=== PATIENT | female | born 1980 | race Caucasian/White ===

== ENCOUNTER → 2017-09-17 | Outpatient (CLI) | payer BC ==
--- NOTE | 2017-09-17 16:11 | US ---
EXAMINATION TYPE: US thyroid st tissue head/neck DATE OF EXAM: 09/17/2017 COMPARISON: 06/07/2014 CLINICAL HISTORY: 36-year-old female Hx Thyroid Ca Z85.850. Palpable area reported along the anterior right paramedian neck. TECHNIQUE: Multiple sonographic images along the thyroid bed a anterior right paramedian palpable sit e. Findings: The thyroidectomy bed is clear. At the site of palpable abnormality anterior right paramedian region, there is a circumscribed, oval isoechoic lesion measuring 2.5 x 0.8 x 2.1 cm. Some images suggest and uneven skin appearance. No int ernal vascularity. The marketing analytics specialist reports that this is soft. It overlies the strap musculature and i s located medial to the sternocleidomastoid. IMPRESSION: 1. Soft, circumscribed, 2.5 cm mass centered in the subcutaneous fat at the palpable site, anterior r ight paramedian neck. A lipoma is suspected. Careful clinical correlation is recommended as there has been reported growth. If there really has been growth, surgical excision can be considered. A contra st-enhanced CT of the neck may be of benefit. 2. The thyroidectomy bed appears clear.
== END ==
LOC: RADUSWWP 15:41
PROVIDERS: ATTEND Family Medicine
DX: Z08 Encounter for follow-up examination after completed treatment for malignant neoplasm (principal); Z85.850 Personal history of malignant neoplasm of thyroid
CPT/HCPCS: 76536

== ENCOUNTER → 2017-09-19 | Outpatient (CLI) | payer BC ==
--- NOTE | 2017-09-19 14:17 | CT ---
EXAMINATION TYPE: CT chest w con DATE OF EXAM: 09/19/2017 COMPARISON: CT neck from yesterday. HISTORY: Patient has no complaints at time of study. Follow up study for abnormal neck ct yesterday. CT DLP: 312.3 mGycm. Automated Exposure Control for Dose Reduction was Utilized. TECHNIQUE: CT scan of the thorax is performed following with IV Contrast, patient injected with 100 mL of Omnipaque 300. FINDINGS: LUNGS: The lungs are grossly clear, there is no concerning parenchymal mass or nodule identified. T here is no pleural effusion or pneumothorax seen. The tracheobronchial tree is patent. MEDIASTINUM: There are no greater than 1 cm hilar or mediastinal lymph nodes. No cardiomegaly or pe ricardial effusion is seen. Curvilinear soft tissue density anterior superior mediastinum is consist ent with normal-appearing thymus tissue presumed from thymic rebound. OTHER: Cholecystectomy clips are present. Splenule is noted inferior to splenic hilum. IMPRESSION: Normal-appearing thymus tissue anterior superior mediastinum atypical for patient's age f avor thymic rebound or thymic hyperplasia. Clinical correlation advised to help determine cause as di fferential includes response to systemic stress, SLE, RA, scleroderma, and Graves' disease among the possible etiologies.
== END | disposition home or self-care (01) ==
LOC: RADCTMAIN 13:28
PROVIDERS: ATTEND Surgery
DX: R22.2 Localized swelling, mass and lump, trunk (principal)
CPT/HCPCS: 71260; Q9967

== ENCOUNTER 2017-10-07 08:47 | Day surgery (SDC) | payer BC ==
[2017-10-07 09:18] VITALS: BP 145/73; PULSE 77; RESP 16; TEMP 97.2
--- NOTE | 2017-10-07 10:58 | US ---
ULTRASOUND GUIDED FNA DISCONTINUED: CLINICAL HISTORY: Right neck mass FINDINGS: The procedure was explained to the patient. The risks, complications, benefits and alternatives were discussed and any questions were answered. Informed consent was obtained. Patient was placed supin e on the ultrasound table and prepped and draped in the usual sterile fashion. Preliminary imaging of the area demonstrated no discernible lesion for percutaneous biopsy. IMPRESSION: 1. Neither CT scan or ultrasound demonstrated a definite solid appearing mass. Possibility of a lipom a may be present. Recommend surgical biopsy as clinically warranted.
== END 2017-10-07 10:19 | disposition home or self-care (01) ==
LOC: RADPROMAIN 08:47
PROVIDERS: ATTEND Surgery
DX: R22.1 Localized swelling, mass and lump, neck (principal); Z53.8 Procedure and treatment not carried out for other reasons
CPT/HCPCS: 76536

== ENCOUNTER → 2018-01-20 | Outpatient (CLI) | payer BC ==
--- NOTE | 2018-01-20 14:28 | CT ---
EXAMINATION TYPE: CT chest w con DATE OF EXAM: 01/20/2018 COMPARISON: 09/19/2017 HISTORY: Enlarged thymus gland CT DLP: 347.9 mGycm Automated exposure control for dose reduction was used. CONTRAST: CT scan of the chest is performed with IV Contrast, patient injected with 100 mL of Omnipaque 300. FINDINGS: LUNGS: The lungs are grossly clear, there is no concerning parenchymal mass or nodule identified. T here is no pleural effusion or pneumothorax seen. The tracheobronchial tree is patent. MEDIASTINUM: There are no greater than 1 cm hilar or mediastinal lymph nodes. No pericardial effusi on is seen. Curvilinear soft tissue density anterior superior mediastinum is consistent with normal- appearing thymus tissue OTHER: Cholecystectomy clips are present. Splenule is noted inferior to splenic hilum. Hypertrophic and degenerative change of the spine noted. IMPRESSION: 1. Thymic tissue is stable in appearance unchanged from prior exam. 2. No acute process
== END | disposition home or self-care (01) ==
LOC: RADCTMAIN 12:54
PROVIDERS: ATTEND Thoracic Surgery (Cardiothoracic Vascular Surgery)
DX: R22.1 Localized swelling, mass and lump, neck (principal)
CPT/HCPCS: 71260; Q9967

== ENCOUNTER 2021-08-24 12:39 | Emergency (ER) | payer BC ==
[2021-08-24 13:52] VITALS: TEMP 97.9
--- NOTE | 2021-08-24 16:06 | ED ---
General Adult HPI - General Chief complaint: Upper Respiratory Infection Stated complaint: Covid+, wants antibodies Time Seen by Provider: 08/24/21 15:28 Source: patient Mode of arrival: ambulatory Limitations: no limitations - History of Present Illness Initial comments: 40-year-old female with a past medical history of thyroid nodules presents to the emergency room for a chief complaint of wanting coronavirus antibodies. Patient states that she tested +7 days ago on the date of her symptoms started. She states that she thought she was doing better but started to feel little worse again today so wanted to make sure she got the antibodies. Patient denies shortness of breath but does admit to cough congestion.Patient has no other complaints at this time including shortness of breath, chest pain, abdominal pain, nausea or vomiting, headache, or visual changes. - Related Data Home Medications Medication Instructions Recorded Confirmed Cyanocobalamin (Vitamin B-12) 5,000 mcg PO Q2D 09/27/17 09/27/17 [Vitamin B12] Magnesium Gluconate [Magonate] 120 mg PO DAILY 09/27/17 09/27/17 Multivitamin with Iron 1 each PO DAILY 09/27/17 09/27/17 [Multivitamins with Iron] Thyroid,Pork [Boss Thyroid] 180 mg PO DAILY 09/27/17 10/07/17 Allergies Allergy/AdvReac Type Severity Reaction Status Date / Time sulfamethoxazole Allergy Anaphylaxis Verified 08/24/21 13:49 [From Bactrim] trimethoprim [From Bactrim] Allergy Anaphylaxis Verified 08/24/21 13:49 Review of Systems ROS Statement: Those systems with pertinent positive or pertinent negative responses have been documented in the HPI. ROS Other: All systems not noted in ROS Statement are negative. Past Medical History Past Medical History: Thyroid Disorder Additional Past Medical History / Comment(s): THYROID NODULES History of Any Multi-Drug Resistant Organisms: None Reported Past Surgical History: Cholecystectomy Additional Past Surgical History / Comment(s): WISDOM TEETH REMOVED, thyroidectomy Past Anesthesia/Blood Transfusion Reactions: Postoperative Nausea & Vomiting (PONV) Past Psychological History: No Psychological Hx Reported Smoking Status: Never smoker Past Alcohol Use History: Occasional Past Drug Use History: None Reported - Past Family History Father Family Medical History: No Reported History General Exam Limitations: no limitations General appearance: alert, in no apparent distress Head exam: Present: atraumatic Eye exam: Present: normal appearance, PERRL, EOMI. Absent: scleral icterus, conjunctival injection ENT exam: Present: normal exam, mucous membranes moist Neck exam: Present: normal inspection, full ROM. Absent: tenderness Respiratory exam: Present: normal lung sounds bilaterally. Absent: respiratory distress, wheezes Cardiovascular Exam: Present: regular rate, normal rhythm, normal heart sounds GI/Abdominal exam: Present: soft, normal bowel sounds. Absent: distended, tenderness Neurological exam: Present: alert Course Vital Signs 08/24/21 13:49 Temperature 97.9 F Pulse Rate 69 Respiratory 18 Rate Blood Pressure 128/84 O2 Sat by Pulse 98 Oximetry Medical Decision Making - Medical Decision Making Patient is well-appearing. Vitals are stable. Patient was given IV antibodies. I did discuss strict return parameters including for shortness of breath. She will otherwise follow up with primary care. Disposition Clinical Impression: COVID-19 Disposition: HOME SELF-CARE Condition: Good Instructions (If sedation given, give patient instructions): Coronavirus Disease 2019 (COVID-19) Additional Instructions: Please follow-up with your doctor in one to 2 days. Return to the emergency room for any worsening symptoms. Is patient prescribed a controlled substance at d/c from ED?: No Referrals: Maureen Cheema MD [REFERRING] - 1-2 days Time of Disposition: 16:05
[2021-08-24 16:20] VITALS: BP 127/80; PULSE 73; RESP 20
[2021-08-24] MEDS ORDERED: SODIUM CHLORIDE 0.9% 50 ML IVPB ONE (16:30)
[2021-08-24] MEDS ORDERED: CASIRIVIMAB (REGN10933) (EUA) 600 MG, IMDEVIMAB (REGN10987) (EUA) 600 MG in SODIUM CHLO... IVPB ONE (16:45)
== END 2021-08-24 19:29 | disposition home or self-care (01) ==
LOC: EC 12:39
DX: U07.1 COVID-19 (principal); E07.9 Disorder of thyroid, unspecified; Z88.1 Allergy status to other antibiotic agents; Z88.2 Allergy status to sulfonamides; Z90.49 Acquired absence of other specified parts of digestive tract
CPT/HCPCS: 99283 ×2; 96365; 96361 ×2; M0243; Q0243

== ENCOUNTER → 2021-09-21 | Outpatient (CLI) | payer BC | END | disposition home or self-care (01) | LOC: LABWHC1 09:57 | PROVIDERS: ATTEND Nurse Practitioner | DX: R06.00 Dyspnea, unspecified (principal) | CPT/HCPCS: 36415; 93005 ==

== ENCOUNTER → 2021-10-03 | Outpatient (CLI) | payer BC ==
--- NOTE | 2021-10-03 13:04 | CT ---
EXAMINATION TYPE: CT chest wo con DATE OF EXAM: 10/03/2021 COMPARISON: Chest CT 01/20/2018 HISTORY: Covid, MEHREEN CT DLP: 563 mGycm. Automated Exposure Control for Dose Reduction was Utilized. TECHNIQUE: CT scan of the thorax is performed without IV contrast. FINDINGS: Lack of intravenous contrast compromises sensitivity. LUNGS: The lungs are grossly clear, there is no concerning parenchymal mass or nodule identified. T here is no pleural effusion or pneumothorax seen. The tracheobronchial tree is patent. Posterior alphonse phragmatic hernia left is stable and contains fat. MEDIASTINUM: Lack of IV contrast is noted to limit evaluation for mediastinal and especially hilar ad enopathy. There are no definitive greater than 1 cm hilar or mediastinal lymph nodes. No cardiomega ly or pericardial effusion is seen. Thymic tissue seen on prior exam along anterior mediastinum shows a similar appearance, no local mass effect OTHER: Patient is post cholecystectomy. IMPRESSION: No abnormality evident to account for patient's symptoms.
== END | disposition home or self-care (01) ==
LOC: RADCTMAIN 12:06
PROVIDERS: ATTEND Family Medicine
DX: R06.00 Dyspnea, unspecified (principal)
CPT/HCPCS: 71250

== ENCOUNTER → 2022-01-17 | Outpatient (CLI) | payer BC ==
--- NOTE | 2022-01-17 14:50 | CT ---
EXAMINATION TYPE: CT soft tissue neck w con DATE OF EXAM: 01/17/2022 2:31 PM COMPARISON: Ultrasound 12/07/2021, CT neck 09/18/2017 HISTORY: Swelling lump/mass in neck, marked by BB. Hx thyroid ca, thyroidectomy CT DLP: 551.70 mGycm Automated exposure control for dose reduction was used. CONTRAST: CT scan of the neck is performed following with IV Contrast, patient injected with 100 mL of Isovue 3 00. Axial images are obtained, coronal and sagittal reformatted images are reviewed. FINDINGS: A marker is been placed over the area of palpable abnormality. There is a fat attenuation l esion measuring approximately 3.2 cm with no solid component compatible with a lipoma. Lung apices are clear. Previous thyroid surgery suggested. There is shotty adenopathy seen throughout the soft tissue the neck with no diagnostic evidence of pathologic adenopathy. Residual thymic tissu e seen in the mediastinum and the lung apices are clear. Oropharynx and nasopharynx are symmetric. Orbits are symmetric. Nasal septal deviation noted. Intracr anial visualized structures symmetric. Osseous structures intact. Parotid glands and submandibular glands have a symmetric and normal appearance. Base of the tongue is symmetric. IMPRESSION: 1. Palpable abnormality is most typical of a soft tissue benign lipoma.
== END | disposition home or self-care (01) ==
LOC: RADCTMAIN 13:58
PROVIDERS: ATTEND Family Medicine
DX: D17.0 Benign lipomatous neoplasm of skin and subcutaneous tissue of head, face and neck (principal)
CPT/HCPCS: 70491; Q9967

== ENCOUNTER → 2023-12-04 | Outpatient (CLI) | payer BC ==
--- NOTE | 2023-12-05 08:53 | MM ---
Reason for Exam: Screening (asymptomatic). Last mammogram was performed 14 year(s) and 6 month(s) ago. Patient History: Menarche at age 15. First Full-Term at age 31. Progesterone for 1 month starting at age 43. Currently using Hormonal Contraceptives, beginning at age 27 for 1 year. Maternal grandmother had breast cancer. Maternal grandmother had breast cancer. Last menstrual period: 11/22/2023 Risk Values: Lashell 5 year model risk: 0.7%. NCI Lifetime model risk: 11.0%. Prior Study Comparison: 05/30/2009 Bilateral Diagnostic Mammogram, [facility]. Tissue Density: There are scattered fibroglandular densities. Findings: Analyzed By CAD. There is no suspicious group of microcalcifications or new suspicious mass. Overall Assessment: Negative, BI-RAD 1 Management: Screening Mammogram of both breasts in [address] [facility] will attempt to contact patient to return for supplemental views and ultrasound if indicated. Patient should continue monthly self-breast exams. A clinical breast exam by your physician is recommended on an annual basis. This exam should not preclude additional follow-up of suspicious palpable abnormalities. Note on Lashell scores and lifetime risk: 1. A Lashell score greater than 3% is considered moderate risk. If this is the case, consider specialist referral to assess eligibility for a risk reducing agent. 2. If overall lifetime risk for the development of breast cancer is 20% or higher, the patient may qualify for future screening with alternating mammogram and breast MRI. Electronically signed and approved by: Goran Angulo DO
== END | disposition home or self-care (01) ==
LOC: RADMAMWWP 16:00
PROVIDERS: ATTEND Obstetrics & Gynecology
DX: Z12.31 Encounter for screening mammogram for malignant neoplasm of breast (principal); Z80.3 Family history of malignant neoplasm of breast
CPT/HCPCS: 77067

== ENCOUNTER → 2023-12-05 | Outpatient (CLI) | payer BC ==
--- NOTE | 2023-12-12 12:27 | XR ---
EXAMINATION TYPE: XR shoulder limited LT DATE OF EXAM: 12/05/2023 COMPARISON: NONE HISTORY: 43-year-old female M67.813 OTHER SPECIFIED DISORDERS OF TENDON, left shoulder pain and limit ed movement TECHNIQUE: AP internal rotation and scapular Y views. FINDINGS: AC joint appears congruent and intact. Subacromial space is preserved. No tendinous or bursal calcifi cations. No acute fracture, subluxation, or dislocation is seen. Visualized left hemithorax is clear. IMPRESSION: 2 views are provided. No acute osseous abnormality seen.
== END | disposition home or self-care (01) ==
LOC: RADXRMAIN 09:14
PROVIDERS: ATTEND Family Medicine
DX: M67.814 Other specified disorders of tendon, left shoulder (principal)

== ENCOUNTER → 2024-01-29 | Outpatient (CLI) | payer BC ==
--- NOTE | 2024-02-04 15:27 | MR ---
EXAMINATION TYPE: MR hand LT wo/w con DATE OF EXAM: 01/29/2024 COMPARISON: Radiograph 12/30/2023 HISTORY: 43-year-old female [id number] LOCALIZED SWELLING, MASS AND LUMP, Left index finger pain, distal p halangeal mass since Dec 2023. Technique: Multiplanar, multisequence images of the left hand were obtained before and after administ ration of 9 mL intravenous Gadavist gadolinium contrast. FINDINGS: There is intense edema centered at the second DIP joint. This includes osseous as well as adjacent so ft tissue edema. Edema involves most of the middle and distal phalanges. Corresponding intense postco ntrast enhancement of the bony structures and adjacent soft tissues. There may be early marginal ero sions and periarticular pannus on coronal T1 sequence. No significant tenosynovial fluid is seen. No other significant abnormality within the remainder of t he hand. IMPRESSION: Inflammatory process centered at the second DIP joint with associated intense edema and postcontrast enhancement of the joint, bone, and adjacent soft tissues. Possible early marginal erosion and periar ticular pannus. Consider possibilities such as a septic arthritis or an inflammatory/crystalline arth ropathy. Follow-up radiograph to assess for any progressive changes compared to 12/30/2023.
== END | disposition home or self-care (01) ==
LOC: RADMRIMAIN 21:30
PROVIDERS: ATTEND Orthopaedic Surgery
DX: M79.642 Pain in left hand (principal); R22.32 Localized swelling, mass and lump, left upper limb; M79.645 Pain in left finger(s)
CPT/HCPCS: 73220; A9585

== ENCOUNTER → 2024-02-10 | Outpatient (CLI) | payer BC ==
[2024-02-10 17:08] LABS: Basophils # (A) 0.02 X 10*3/uL (0.00-0.10); Basophils % (A) 0.3 %; Eosinophils # (A) 0.09 X 10*3/uL (0.04-0.35); Eosinophils % (A) 1.3 %; HCT 41.4 % (37.2-46.3); HGB 13.5 g/dL (12.0-15.0); Lymphocytes # (A) 1.83 X 10*3/uL (0.90-5.00); Lymphocytes % (A) 26.1 %; MCH 27.7 pg (27.0-32.0); MCHC 32.6 g/dL (32.0-37.0); Mean Platelet Volume 10.3 FL (9.5-12.2); Monocytes # (A) 0.36 X 10*3/uL (0.20-1.00); Monocytes % (A) 5.1 %; NRBC Per 100 WBC 0 X 10*3/uL (0.00-0.01); Neutrophils # (A) 4.69 X 10*3/uL (1.80-7.70); Neutrophils % (A) 67.1 %; Platelet Count 239 X 10*3/uL (140-440); RBC 4.87 X 10*6/uL (4.10-5.20); RDW 12.9 % (11.5-14.5)
[2024-02-10 17:15] LABS: Erythrocyte Sedimentation Rate 3 mm/Hr (0-20)
[2024-02-10 17:34] LABS: ALT 26 U/L (8-44); AST 20 U/L (13-35); BUN/Creat Ratio 16.25 Ratio (12.00-20.00); Calcium 9.9 mg/dL (8.7-10.3); Carbon Dioxide 25.7 mmol/L (21.6-31.8); Chloride 105 mmol/L (96-109); Creatine Kinase 103 U/L (26-186); Glucose 96 mg/dL (70-110); Rheumatoid Factor, Qnt <15 IU/mL (0-15); Sodium 141 mmol/L (135-145); T4, Free (Free Thyroxine) 1.48 ng/dL (0.80-1.80); Uric Acid 4.6 mg/dL (2.9-7.7)
[2024-02-11 08:30] LABS: HLA B27 NEGATIVE
[2024-02-11 12:22] LABS: Angiotensin-1 Converting Enz. 31 U/L (8-52)
== END | disposition home or self-care (01) ==
LOC: LABWHC1 13:03
PROVIDERS: ATTEND Orthopaedic Surgery
DX: M79.642 Pain in left hand (principal); M79.645 Pain in left finger(s); R22.32 Localized swelling, mass and lump, left upper limb
CPT/HCPCS: 36415; 80048; 82164; 82306; 82550; 83520; 84439; 84443; 84450; 84460; 84550; 85025; 85652; 86038; 86140; 86200; 86431; 86812